=== PATIENT | male | born 2000 ===

== ENCOUNTER 2020-11-22 09:41 | Outpatient (REF) | payer OTHER, SELFPAY ==
[2020-11-22 10:14] LABS: MANUAL DIFF FLAG NO
[2020-11-22 10:16] LABS: Basophils Percent Auto 0.5 % (0-2); Eosinophils Absolute Auto 0.1 X10*3/uL (0.0-0.4); Eosinophils Percent Auto 0.9 % (0-4); Hematocrit 44.5 % (42-52); Hemoglobin 15.7 g/dl (14.0-18.0); Imm Gran Abs Auto 0.03 X10*3/uL (0.00-0.03); Imm Gran Pct Auto 0.5 % (0.0-0.4); Lymphocytes Absolute Auto 1.6 X10*3/uL (1.2-4.9); Lymphocytes Percent Auto 23.6 % (20-40); Mean Corpuscular HGB Conc 35.3 g/dl (31.0-36.0); Mean Corpuscular Hemoglobin 30.7 pg (27.0-33.0); Mean Corpuscular Volume 86.9 fL (80-98); Mean Platelet Volume 10.7 fL (9.4-12.4); Monocytes Absolute Auto 0.5 X10*3/uL (0.1-1.2); Monocytes Percent Auto 7.6 % (2-11); Neutrophils Absolute Auto 4.4 X10*3/uL (2.0-8.3); Neutrophils Percent Auto 66.9 % (45-73); Platelet Count 209 X10*3/uL (160-400); Red Blood Count 5.12 X10*6/uL (4.60-5.80); Red Cell Distribution Width 12.3 % (11.0-16.0); White Blood Count 6.6 X10*3/uL (4.8-10.8)
[2020-11-22 11:16] LABS: Alanine Aminotransferase 15 U/L (0-40); Albumin Level 4.8 g/dL (3.5-5.0); Alkaline Phosphatase 66 U/L (39-117); Anion Gap 12 (12-20); Aspartate Amino Transferase 19 U/L (5-37); Bilirubin Total 0.4 mg/dL (0.0-1.0); Blood Urea Nitrogen 17 mg/dL (9-16); Carbon Dioxide 25 mmol/L (22-29); Chloride 105 mmol/L (96-108); Cholesterol 133 mg/dL; Estimated Glomerular Filt Rate > 60; Glucose Fasting 94 mg/dL (60-99); HDL Cholesterol 39 mg/dL; LDL Cholesterol Calculated 69 mg/dl; Potassium 4.4 mmol/L (3.3-5.1); Sodium 138 mmol/L (135-145); Total Protein 7.7 g/dL (6.5-8.0); Triglycerides 125 mg/dL
[2020-11-22 11:37] LABS: Thyroid Stimulating Hormone 1.08 uIU/mL (0.32-4.0)
== END 2020-11-22 09:42 | disposition home or self-care (01) ==
LOC: HO.LAB 09:41
PROVIDERS: PCP Internal Medicine; Visit Provider Internal Medicine
DX: Z00.00 Encounter for general adult medical examination without abnormal findings (principal); E11.9 Type 2 diabetes mellitus without complications; E03.9 Hypothyroidism, unspecified
CPT/HCPCS: 36415; 80053; 80061; 84443; 85025

== ENCOUNTER 2024-02-09 10:57 | Outpatient (AMB) | payer SELFPAY ==
--- NOTE | 2024-02-09 11:04 | MHC.OFFVIS ---
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 Intake Note: Paulino is a 23 year old male who presents today as a new patient with complaints of left knee pain. Patient reports about 10 years ago he dislocated his patella which was reduced. Since then he has had on and off pain, he had pain on the lateral aspect of the knee. Pain is felt daily but is worse after being active. 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 He states she dislocated this many years ago and has recently started having pain and feeling like his patella is going to dislocate. He notes occasional swelling in his difficulty standing from a seated position, climbing stairs and anterior knee pain. [facility] Surgical History (Updated 11/22/20 @ 09:30 by BINDU Jones) No pertinent past surgical history Social History (Updated 11/22/20 @ 09:30 by BINDU Jones) Alcohol intake: never Patient Tobacco Use Status: Never used Tobacco Second Hand Smoke Exposure: No Physical Exam Vital Signs: BMI result Body Mass Index 30.6 Extrem Other: Tenderness to palpation retropatellar facet medially on the left. Positive dynamic step-down test and mild effusion. Results Reviewed Results Reviewed: I personally reviewed relevant radiographs. Peripatellar osteophytes consistent with prior trauma. Assessment & Plan Assessment & Plan (1) Patellar instability of left knee: Code(s): M25.362 - Other instability, left knee Category: Medical Plan: Multiple patellar dislocations with evidence of prior trauma on x-ray. (2) Effusion, left knee: Code(s): M25.462 - Effusion, left knee Category: Medical Plan: There is an effusion of the left knee. Given this in the setting of prior trauma I recommend an MRI. Orders: Orders XR knee LT 3V 02/09/24 M25.562 - Pain in left knee MR knee LT wo con Today M25.362 - Other instability, left knee, M25.462 - Effusion, left knee Coding Level of Care Code New Pt Level 4 (31429) Diagnoses Patellar instability of left knee M25.362 Effusion, left knee M25.462
[2024-02-09 11:13] VITALS: BMI 30.6
== END 2024-02-09 12:13 | disposition home or self-care (01) ==
PROVIDERS: PCP Internal Medicine; Visit Provider Orthopaedic Surgery
DX: M25.362 Other instability, left knee (principal); M25.462 Effusion, left knee
CPT/HCPCS: 99203

== ENCOUNTER 2024-02-09 10:57 | Outpatient (REF) | payer SELFPAY ==
--- NOTE | ~2024-02-09 | XR_ITS ---
EXAMINATION: XR KNEE, LEFT CLINICAL INFORMATION: Pain. COMPARISON: Radiograph right knee 02/09/2019. TECHNIQUE: Three views of the left knee, including an AP standing view of both knees. FINDINGS: No acute fracture or subluxation. Joint spaces are maintained. No osseous erosions. Well-corticated osseous body adjacent to the lateral facet of the left patella in the sunrise view. No significant joint effusion or soft tissue abnormality. XR/XR knee LT 3V IMPRESSION: Indeterminate well-corticated osseous body adjacent to the lateral facet of the left patella in the sunrise view. Otherwise, normal examination. Electronically signed by: Monika Darnell MD 03/04/2024 12:36 PM EDT
== END 2024-02-09 10:58 | disposition home or self-care (01) ==
LOC: HO.HOSX 10:57
PROVIDERS: PCP Internal Medicine; Visit Provider Orthopaedic Surgery
DX: M25.562 Pain in left knee (principal)
CPT/HCPCS: 73562

== ENCOUNTER 2025-05-25 07:46 | Emergency (ER) | payer BC, SELFPAY ==
[2025-05-25 08:07] VITALS: BP 132/61; PULSE 96; RESP 20; TEMP 38.2; O2SAT 96; BMI 31.7
[2025-05-25 09:43] LABS: MANUAL DIFF FLAG NO
[2025-05-25 09:49] LABS: Hematocrit 45.3 % (42.0-52.0); Hemoglobin 15.7 g/dl (14.0-18.0); Imm Gran Abs Auto 0.02 X10*3/uL (0.00-0.03); Imm Gran Pct Auto 0.3 % (0.0-0.4); Lymphocytes Absolute Auto 1.1 X10*3/uL (1.2-4.9); Mean Corpuscular HGB Conc 34.7 g/dl (31.0-36.0); Mean Corpuscular Hemoglobin 30.5 pg (27.0-33.0); Mean Corpuscular Volume 88.1 fL (80.0-98.0); NRBC Abs Auto 0.000 X10*3/uL (0.0-0.012); NRBC Pct Auto 0.0 /100WBC (0.0-0.2); Platelet Count 137 X10*3/uL (160-400); Red Blood Count 5.14 X10*6/uL (4.60-5.80); White Blood Count 7.5 X10*3/uL (4.8-10.8)
[2025-05-25 09:57] LABS: IDNOW Serial# 58CA691E; Strep A Nucleic Acid Negative (Negative)
[2025-05-25 10:01] LABS: Alanine Aminotransferase 35 U/L (0-40); Albumin Level 4.6 g/dL (3.5-5.0); Alkaline Phosphatase 51 U/L (39-117); Anion Gap 10 (12-20); Aspartate Amino Transferase 35 U/L (5-37); Blood Urea Nitrogen 14 mg/dL (9-16); Calcium 9.2 mg/dL (8.4-10.2); Carbon Dioxide 28 mmol/L (22-29); Chloride 103 mmol/L (96-108); Creatinine Clr Calc Pharmacy 109.7; Estimated Glomerular Filt Rate > 60; Lipase 22 U/L (8-78); Potassium 4.1 mmol/L (3.3-5.1); Sodium 137 mmol/L (135-145); Total Protein 7.4 g/dL (6.5-8.0)
[2025-05-25 10:20] LABS: Resp Syncy Virus RNA Qual PCR NEGATIVE (Negative); SARS COV2 PCR INHOUSE NEGATIVE (Negative)
[2025-05-25 11:22] VITALS: BP 120/63; PULSE 98; TEMP 39; O2SAT 99
--- NOTE | 2025-05-25 11:44 | ED.NAVMDI ---
HPI - Nausea/Vomiting/Diarrhea General Chief complaint: Nausea/Vomiting/Diarrhea Stated complaint: vomiting fever Time Seen by Provider: 05/25/25 11:31 Source: patient Mode of arrival: ambulatory Limitations: no limitations History of Present Illness ED Provider: HPI Narrative: 25-year-old otherwise healthy male presenting with reports of generalized malaise, episodes of vomiting, headache and fevers, he states few days ago traveled from [place] and then went to work, no obvious sick contacts, reports sore throat. Denies ongoing abdominal pain. Related Data Previous Rx's ?Medication ?Instructions ?Recorded acetaminophen 500 mg capsule 1,000 mg (2 x 500 mg) PO Q6H PRN 05/25/25 fever or pain 5 days #20 caps ondansetron 4 mg disintegrating 4 mg PO Q8H PRN nausea and 05/25/25 tablet vomiting #4 tabs Allergies Allergy/AdvReac Type Severity Reaction Status Date / Time No Known Allergies (No Known Allergy Verified 05/25/25 08:09 Allergies*) Review of Systems Constitutional: Constitutional: Reports as per HPI [facility] Past Medical History Surgical History No pertinent past surgical history Social History Social History (Updated 11/22/20 @ 09:30 by BINDU Jones) Alcohol intake: never Patient Tobacco Use Status: Never used Tobacco Second Hand Smoke Exposure: No Do you have a plan to hurt others: No Plan Physical Exam Exam: Exam: ?General: ??looks age appropriate ?Bilateral TMs without fluid buildup or erythema Injected pharynx, slight tonsillar exudates, uvula midline Neck: no neck stiffness ?CV: RRR, no obvious murmurs appreciated ?Resp: ?No wheezing rales rhonchi no stridor moving air well Abd: ?No tenderness in the epigastric right upper quadrant right lower quadrant or left lower quadrant, bowel sounds present MSK: FROM, strength 5/5 all extremities Skin: Warm, dry, intact, ?Neuro: ?Alert and oriented x3, moving upper and lower extremities symmetrically, no obvious facial asymmetry noted, cranial nerves 2-12 intact Vital Signs: Vital Signs: Last Vital Signs Temp 102.2 F H 05/25/25 11:22 Pulse 98 05/25/25 11:22 Resp 20 05/25/25 08:07 BP 120/63 05/25/25 11:22 Pulse Ox 99 05/25/25 11:22 O2 Del Method Room Air 05/25/25 11:22 BMI result Body Mass Index 31.7 Medical Decision Making Medical Decision Making [facility] Narrative: 11:47 AM 05/25/2025 (Dr. Dalton Jarvis): Overall well-appearing young man without any history of smoking in the other reported drug use, recent travel to [place] and now coming back with mostly sore throat, reported nausea or vomiting without abdominal pain, on abdominal examination is completely benign there was no tenderness in the right upper quadrant or right lower quadrant to suspect either appendicitis or cholecystitis did not feel further imaging is indicated, there was no evidence for meningismus on exam and he just overall very well-appearing, there is some evidence that he has underlying viral syndrome, he has predominantly lymphocytosis without neutrophilia, has no leukocytosis, body aches, injected throat, nothing to suspect meningitis or encephalitis on exam at this time and he does not have risk factors for that Differential Diagnosis Differential Diagnoses: The differential diagnosis associated with the presentation includes (Pneumonia, otitis media, pharyngitis, peritonsillar abscess, appendicitis, cholecystitis, encephalitis, meningitis) Admission/Observation Consideration of admission/observation: Escalation of care including admission/observation considered Lab Data [facility] Lab Attestation statement: I reviewed the patient's lab results. 05/25/25 09:31 05/25/25 09:31 Labs: Lab Results 05/25/25 Range/Units 09:31 WBC 7.5 (4.8-10.8) X10*3/uL RBC 5.14 (4.60-5.80) X10*6/uL Hgb 15.7 (14.0-18.0) g/dl Hct 45.3 (42.0-52.0) % MCV 88.1 (80.0-98.0) fL MCH 30.5 (27.0-33.0) pg MCHC 34.7 (31.0-36.0) g/dl RDW 12.1 (11.0-16.0) % Plt Count 137 L (160-400) X10*3/uL MPV 11.0 (9.4-12.4) fL Immature Gran % (Auto) 0.3 (0.0-0.4) % Neut % (Auto) 72.5 (45-73) % Lymph % (Auto) 14.5 L (20-40) % Hardin % (Auto) 12.3 H (2-11) % Eos % (Auto) 0.1 (0-4) % Baso % (Auto) 0.3 (0-2) % Lymph # (Auto) 1.1 L (1.2-4.9) X10*3/uL Hardin # (Auto) 0.9 (0.1-1.2) X10*3/uL Eos # (Auto) 0.0 (0.0-0.4) X10*3/uL Baso # (Auto) 0.0 (0.0-0.2) X10*3/uL Abs Immat Gran (auto) 0.02 (0.00-0.03) X10*3/uL Absolute Neuts (auto) 5.4 (2.0-8.3) x10*3/uL Absolute Nucleated RBC 0.000 (0.0-0.012) X10*3/uL Nucleated RBC % (auto) 0.0 (0.0-0.2) /100WBC Sodium 137 (135-145) mmol/L Potassium 4.1 (3.3-5.1) mmol/L Chloride 103 (96-108) mmol/L Carbon Dioxide 28 (22-29) mmol/L Anion Gap 10 L (12-20) BUN 14 (9-16) mg/dL Creatinine 1.21 (0.5-1.4) mg/dL Estim Creat Clear Calc 109.7 Estimated GFR > 60 Random Glucose 115 (60-115) mg/dL Calcium 9.2 D (8.4-10.2) mg/dL Total Bilirubin 0.4 (0.0-1.0) mg/dL Direct Bilirubin 0.2 (0.0-0.5) mg/dL AST 35 (5-37) U/L ALT 35 (0-40) U/L Alkaline Phosphatase 51 (39-117) U/L Total Protein 7.4 (6.5-8.0) g/dL Albumin 4.6 (3.5-5.0) g/dL Lipase 22 (8-78) U/L Influenza Type A (PCR) NEGATIVE (Negative) Influenza Type B (PCR) NEGATIVE (Negative) RSV RNA Qual (PCR) NEGATIVE (Negative) SARS-CoV-2 RNA (RT-PCR) NEGATIVE (Negative) S. pyogenes GrpA MICHAEL Negative (Negative) Tests considered The following testing was considered but not selected: Chest x-ray Discharge Plan Discharge Clinical Impression: Nausea & vomiting, Acute viral syndrome Additional Instructions: Evaluated with fever, body aches, reported nausea and vomiting, as discussed with the you examination is reassuring I do not see any evidence for pneumonia or ear infection, there is some redness in your throat and overall your clinical picture is suggestive of a viral infection, we test for viruses such as RSV COVID flu and you had a throat swab to make sure you do not need antibiotics all that has been reassuring, your blood work did not reveal any evidence for significant infection or dehydration, I recommend that you take Tylenol 975 mg every 6 hours needed for fevers, Motrin 400 mg every 6 hours works better for body aches, and Zofran as needed for nausea and vomiting 4 mg every 8 hours, I would say until you have resolution your symptoms stay home, stay well hydrated, do not expose other people to likely viral infection that you are having, and if you are having worsening issues or concerns come back to the ER Prescriptions: New ondansetron 4 mg tablet,disintegrating 4 mg PO Q8H PRN (Reason: nausea and vomiting) Qty: 4 0RF acetaminophen 500 mg capsule 1,000 mg PO Q6H PRN (Reason: fever or pain) 5 Days Qty: 20 0RF Stand Alone Forms: Work/School Release Print Language: Lao
[2025-05-25 12:59] VITALS: BP 123/74; PULSE 89; TEMP 36.6; O2SAT 95
[2025-05-25 13:00] VITALS: TEMP 36.6
[2025-05-25 13:07] VITALS: BP 123/74; PULSE 89; RESP 16; TEMP 36.6; O2SAT 95
--- OUTSIDE RECORDS SUMMARY | 2025-05-25 14:18 | XMS_ITS | Clinical Summary ---
Author Organization [facility] Address [address] [place] [phone] Phone Care Team Providers Care Fishing Accessories Maker Name Role Phone Pcp, Unknown Primary Care Provider Unavailabl e Allergies No known active allergies Medications No known medications Active Problems No known active problems Immunizations Immunization Administration Dates Next Due Influenza Quadrivalent Preservative Free IM 05/23 Meningococcal B, OMV (MenB-4C) 06/02/2018 Meningococcal MCV4P 06/02/2018 Family History Medical History Relation Comments Cancer Neg Hx Diabetes Neg Hx Heart disease Neg Hx Relation Status Comments Father Alive Mother Alive Social History Tobacco Use Types Packs/Day Years Used Date Smoking Tobacco: Never Smokeless Tobacco: Never Alcohol Use Standard Drinks/Week Comments No 0 (1 standard drink = 0.6 oz pur e alcohol) Education Answer Date Recorded Are you interested in more education? Not on shahrzad e 10/18/2022 Are you concerned about learning? Not on file 10/18/2022 No 10/18/2022 No 10/18/2022 Digital Access Answer Date Recorded No 11/16/2022 No 11/16/2022 No 11/16/2022 Reliable internet access at home? Not on file 11/16/2022 Device with a working camera? Not on file Sex and Gender Information Value Date Recorded Sex Assigned at Not on file Legal Sex Male 1:36 PM EDT Gender Identity Not on file Sexual Orientation Not on file Last Filed Vital Signs Vital Sign Reading Time Taken Comments Blood Pressure 102/58 06/02/2018 10:40 AM EST Pulse 65 06/02/2018 10:40 AM EST Temperature 36.8 C (98.2 F) 06/02/2018 10:40 AM EST Respiratory Rate - - Oxygen Saturation 99% 06/02/2018 10:40 AM EST Inhaled Oxygen Concentration - - Weight 96.2 kg (212 lb) 06/02/2018 10:40 AM EST Height 175.3 cm (5' 9 ) 06/02/2018 10:40 AM EST Body Mass Index 31.31 06/02/2018 10:40 AM EST Plan of Treatment Health Maintenance Due Date Last Done Comments Adult Td,Tdap Booster 1999 HPV VACCINES (1 - Male 3-dos e series) 2014 HEPATITIS C SCREENING 2017 HIV ONE-TIME SCREENING (18-6 5 YEARS) 2017 MENINGOCOCCAL VACCINES (B) ( 2 of 2 - Bexsero SCDM 2-dose series) 12/01/2018 06/02/2018 DEPRESSION SCREENING 12/16/2018 12/16/2017 INFLUENZA VACCINE (#1) 2025 06/02/2018 COVID-19 VACCINE (1 - 2024-2 6 season) 2025 SMOKING STATUS SCREENING (On ce After 26 Yrs) 2025 MENINGOCOCCAL VACCINES (ACWY) Aged Out 06/02/2018 No longer eligible based on patient's age to complete this topic HEPATITIS A VACCINES Aged Out No long er eligible based on patient's age to complete this topic HIB VACCINES Aged Out No longer eligi ble based on patient's age to complete this topic PNEUMOCOCCAL VACCINES (0-49 years) Aged Out No longer eligible based on patient's age to complete this topic Medical Devices Not on file Care Teams Fishing Accessories Maker Relationship Specialty Start Date End Date Pcp, Unknown PCP - General 11/08/21 Additional Source Comments The information contained in this document represents components of the legal health record. It is not the complete legal health record.[facility]
== END 2025-05-25 13:09 | disposition home or self-care (01) ==
PROVIDERS: Emergency Provider Emergency Medicine
DX: B34.9 Viral infection, unspecified (principal); R11.2 Nausea with vomiting, unspecified; R50.9 Fever, unspecified; R51.9 Headache, unspecified; Z03.818 Encounter for observation for suspected exposure to other biological agents ruled out
CPT/HCPCS: 80048; 80076; 83690; 85025; 87637; 87651; 96372; 99283; 99284; J1885